=== PATIENT | female | born 1960 | race Caucasian/White ===

== ENCOUNTER 2017-07-17 08:33 | Day surgery (SDC) | payer BC ==
[2017-07-17] MEDS: PROPARACAINE 0.5% 15 ML OPH OPER (09:45)
[2017-07-17] MEDS: CYCLOPENTOLATE 1% 2 ML OPH OPER (09:46)
[2017-07-17] MEDS: PHENYLephrine 2.5% 15 ML OPH OPER (09:48)
[2017-07-17] MEDS: TROPICAMIDE 1% 3 ML OPH OPER (09:48)
[2017-07-17] MEDS: MOXIFLOXACIN 0.5% 3 ML OPH OPER (09:48)
[2017-07-17] MEDS ORDERED: LIDOCAINE 2% (SDV) 5 ML INJ (09:49)
[2017-07-17] MEDS ORDERED: LIDOCAINE 1% (MPF) 10 ML INJ (10:28)
[2017-07-17] MEDS ORDERED: BSS PLUS 500 ML + VANCO 10MG, GENT 4 MG, EPI 0.25 MG IRR (10:30)
[2017-07-17] MEDS ORDERED: LIDOCAINE 3.5% GEL TUBE OPER (11:00)
[2017-07-17] MEDS ORDERED: PROPOFOL 20 ML (11:04)
[2017-07-17] MEDS ORDERED: LIDOCAINE 100 MG SYRINGE (11:04)
[2017-07-17] MEDS ORDERED: ONDANSETRON 4 MG INJ (11:04)
[2017-07-17] MEDS ORDERED: DEXTROSE 50% 50 ML SYRINGE (11:15)
[2017-07-17] MEDS: HYALURONIDASE 150 UNIT/ML VIAL (11:26)
[2017-07-17] MEDS: BUPIVACAINE 0.5% 30 ML VIAL INJ (11:28)
[2017-07-17] MEDS: LIDOCAINE 2% (MDV) 20 ML INJ INJ (11:29)
[2017-07-17] MEDS: TOBRAMYCIN 0.3% 5 ML OPH (11:30)
[2017-07-17] MEDS: TOBRAMYCIN 0.3% 3.5 GM OPH OINT (11:31)
[2017-07-17] MEDS ORDERED: HYDROmorphONE (0.2 MG/ML) 10ML SYG IV ×3 (12:00)
[2017-07-17] MEDS ORDERED: ONDANSETRON 4 MG INJ IV (12:00)
[2017-07-17] MEDS ORDERED: FENTAnyl 50 MCG/ML VIAL IV ×2 (12:00)
[2017-07-17] MEDS: FENTAnyl 50 MCG/ML VIAL IV (12:38)
== END 2017-07-17 14:42 | disposition home or self-care (01) ==
LOC: SDS 08:33
DX: H25.12 Age-related nuclear cataract, left eye (principal); E11.9 Type 2 diabetes mellitus without complications
CPT/HCPCS: 66984; 82962

== ENCOUNTER 2018-03-27 09:53 | Emergency (ER) | payer BC ==
[2018-03-27] MEDS: KETOROLAC 30 MG INJ IM (11:36)
[2018-03-27 12:23] LABS: ADD UMIC YES; UR ASCORBIC ACID NEGATIVE (NEGATIVE); UR BACTERIA FEW /HPF (NONE SEEN); UR BILIRUBIN (Dip) NEGATIVE (NEGATIVE); UR BLOOD (Dip) NEGATIVE (NEGATIVE); UR CLARITY CLEAR (CLEAR); UR COLOR YELLOW (YELLOW); UR GLUCOSE (Dip) NEGATIVE (NEGATIVE); UR KETONES (Dip) TRACE mg/dL (NEGATIVE); UR LEUKOCYTE ESTERASE (Dip) 1+ Leu/ul (NEGATIVE); UR NITRITE (Dip) POSITIVE (NEGATIVE); UR RBC 0 /HPF (0-5); UR SPECIFIC GRAVITY (Dip) 1.005 (1.003-1.030); UR SQUAMOUS EPITHELIAL CELL FEW /HPF (FEW); UR TOTAL PROTEIN (Dip) NEGATIVE (NEGATIVE); UR UROBILINOGEN (Dip) NEGATIVE (NEGATIVE); UR WBC 16 /HPF (0-5)
== END 2018-03-27 12:56 | disposition home or self-care (01) ==
LOC: FTE 09:53
DX: N12 Tubulo-interstitial nephritis, not specified as acute or chronic (principal); Z79.84 Long term (current) use of oral hypoglycemic drugs
CPT/HCPCS: 81001; 87400; 96372; 99284-25